=== PATIENT | female | born 1955 | race Caucasian/White ===

== ENCOUNTER 2019-07-15 09:13 | Emergency (ER) | payer OTHER ==
[~2019-07-15] VITALS: Ht 157.5 cm; Wt 72.6 kg
[~2019-07-15 09:13] MED LIST: CELEXA20 MG PO; IBUPROFEN 800800 M1 PO; LAMICTAL150 MG PO; NORCO 5-325 TA1 EACH PO; TRAZODONE HCL50 MG PO
[2019-07-15] MEDS ORDERED: PROMETH-CODEIN 65 ML PO (09:29)
[2019-07-15] MEDS ORDERED: BUPROPION XL300 MG PO (09:32)
[2019-07-15 10:42] LABS: ABSOLUTE NEUTROPHILS 13.1 thou/uL (1.4-8.2); BASOPHILS 0.4 % (0.0-2.0); EOSINOPHILS 0.6 % (0.0-3.0); HEMATOCRIT 36.3 % (37.0-47.0); HEMOGLOBIN 12.5 gm/dL (12.0-15.0); LYMPHOCYTES 8.2 % (24.0-44.0); MCH 30.5 pg (26.0-34.0); MCHC 34.5 g/dL (28.0-37.0); MCV 88.4 fL (80.0-100.0); MONOCYTES 8.3 % (1.0-8.0); PLATELET COUNT 550 thou/uL (150-400); POLYS 82.5 % (36.0-66.0); RDW 13.7 % (10.5-14.5); WBC 15.9 thou/uL (4.0-11.0)
[2019-07-15 10:54] LABS: CALCIUM 9.1 mg/dL (8.5-10.1); CREATININE 0.9 mg/dL (0.6-1.0); POTASSIUM 3.8 mmol/L (3.5-5.1)
[2019-07-15] MEDS ORDERED: LEVAQUIN 750 M750 MG PO (12:28)
[2019-07-15] MEDS ORDERED: TESSALON PERLE100 MG PO (12:28)
[2019-07-15 12:41] VITALS: BP 112/59
== END 2019-07-15 13:30 | disposition home or self-care (01) ==
LOC: ER 09:13
PROVIDERS: Emergency Medicine
DX: R05 Cough (principal); R11.10 Vomiting, unspecified; Z03.818 Encounter for observation for suspected exposure to other biological agents ruled out; Z79.899 Other long term (current) drug therapy

== ENCOUNTER → 2020-02-28 | Outpatient (CLI) | payer OTHER ==
[~2020-02-28] MED LIST changes: +BUPROPION XL300 MG PO; +LEVAQUIN 750 M750 MG PO; +PROMETH-CODEIN 65 ML PO; +TESSALON PERLE100 MG PO
== END ==
LOC: CAT 09:28
PROVIDERS: ATTEND Internal Medicine
DX: R91.8 Other nonspecific abnormal finding of lung field (principal); R93.89 Abnormal findings on diagnostic imaging of other specified body structures; I70.0 Atherosclerosis of aorta